=== PATIENT | male | born 1990 | race Caucasian/White ===

== ENCOUNTER → 2023-06-12 08:04 | Outpatient (CLI) | payer BC, SELFPAY ==
[2023-06-12 19:16] LABS: Add Manual Diff / Slide Review NO; Basophils Absolute Auto 100 /uL (0-100); Basophils Percent Auto 0.5 % (0-2); Eosinophils Absolute Auto 300 /uL (0-450); Eosinophils Percent Auto 3.2 % (2-4); Hematocrit 49.1 % (41-53); Hemoglobin 16.6 g/dL (13.5-17.5); Lymphocytes Absolute Auto 1900 /uL (1100-4500); Lymphocytes Percent Auto 19.8 % (25-40); Mean Corpuscular HGB Conc 33.8 % (30-36); Mean Corpuscular Hemoglobin 31.6 PG (26-34); Mean Corpuscular Volume 93.6 fL (80-100); Monocytes Absolute Auto 400 /uL (0-900); Monocytes Percent Auto 4.6 % (3-14); Neutrophils Absolute Auto 6900 /uL (1500-7000); Neutrophils Percent Auto 71.9 % (50-75); Platelet Count 307 X10^3/uL (150-400); Red Blood Cell Count 5.25 X10^6/uL (4.5-5.9); Red Cell Distribution Width 12.7 % (11.6-14.8); White Blood Cell Count 9.6 X10^3/uL (4.5-11.0)
[2023-06-12 19:21] LABS: HEMOLYSIS 19 (0-50); Iron 251 ug/dL (49-181)
[2023-06-12 19:32] LABS: Percent Iron Saturation 65 % (20-50); Total Iron Binding Capacity 388 ug/dL (261-462); Transferrin 364 mg/dL (206-381)
[2023-06-12 19:38] LABS: Alanine Aminotransferase 22 IU/L (<50); Albumin 4.5 g/dL (3.5-5.0); Albumin Globulin Ratio 1.7 (1.0-2.8); Alkaline Phosphatase 92 U/L (38-126); Aspartate Aminotransferase 33 IU/L (17-59); BUN Creatinine Ratio 11.9 (6-22); Bilirubin Total 0.9 mg/dL (0.2-1.3); Blood Urea Nitrogen 10 mg/dL (9-20); Calcium 10.5 mg/dL (8.4-10.2); Carbon Dioxide 27 mmol/L (22-32); Chloride 99 mmol/L (98-107); Cholesterol 153 mg/dL (140-199); Estimated Glomerular Filt Rate > 60 mL/min (>60); Globulin 2.7 g/dL (1.7-4.1); Glucose 133 mg/dL (70-100); HDL Cholesterol 88 mg/dL (40-60); HEMOLYSIS 17 (0-50); LDL Cholesterol Calculated 41 mg/dL (<100); Potassium 4.9 mmol/L (3.4-5.1); Sodium 137 mmol/L (137-145); Total Protein 7.2 g/dL (6.3-8.2); Triglycerides 122 mg/dL (35-150)
== END ==
PROVIDERS: PCP Family Medicine; Visit Provider Family Medicine
DX: Z13.6 Encounter for screening for cardiovascular disorders (principal); I10 Essential (primary) hypertension; R10.9 Unspecified abdominal pain; G89.29 Other chronic pain
CPT/HCPCS: 80053; 80061; 83540; 83550; 85025

== ENCOUNTER → 2023-09-10 15:01 | Outpatient (CLI) | payer OTHER, SELFPAY ==
--- NOTE | 2023-09-10 15:04 | DI.US.S_ITS ---
PROCEDURE: US ABDOMEN COMPLETE INDICATIONS: abd pain chronic RUQ since choley more than a decade ago TECHNIQUE: Real-time scanning was performed of the abdominal and retroperitoneal organs, with image documentation. COMPARISON: None. FINDINGS: Liver: Liver is normal in size and homogeneous in echotexture. There is a cluster of cysts within the right hepatic dome measuring 1.0 x 1.0 x 0.8 cm. Gallbladder: Surgically absent. Biliary ducts: Intrahepatic bile ducts are not well seen. Extrahepatic bile duct caliber measures 2.9 mm. Normal is 6-7 mm or less in diameter, or 10 mm or less post-cholecystectomy. Pancreas: Visualized portions of the pancreas are sonographically normal. Spleen: Spleen is normal in size and homogeneous in echotexture. Kidneys: Kidneys are normal in size and echotexture. Right kidney measures 9.4 cm long; left kidney measures 10.7 cm long. No hydronephrosis or nephrolithiasis. No solid masses. Aorta: Visualized aorta is normal in caliber at less than 3 cm. Iliacs: Proximal common iliac arteries are normal in caliber at less than 2.5 cm. IVC: Intrahepatic inferior vena cava is patent. Miscellaneous: No free abdominal fluid. IMPRESSION: 1. Gallbladder is surgically absent. 2. Small cluster of cysts within the right hepatic dome measuring 1 cm. 3. No biliary ductal dilatation. Dictated by: Randy Riojas M.D. on 09/11/2023 at 9:34 Approved by: Randy Riojas M.D. on 09/11/2023 at 9:36
== END ==
LOC: US 15:03
PROVIDERS: PCP Family Medicine; Referring Provider Family Medicine; Visit Provider Family Medicine
DX: K76.89 Other specified diseases of liver (principal); M79.89 Other specified soft tissue disorders; R10.9 Unspecified abdominal pain; G89.29 Other chronic pain; Z90.49 Acquired absence of other specified parts of digestive tract
CPT/HCPCS: 76700

== ENCOUNTER → 2023-09-20 11:08 | Outpatient (CLI) | payer OTHER, SELFPAY ==
[2023-09-20 19:02] LABS: HEMOLYSIS < 15 (0-50); Iron 114 ug/dL (49-181)
[2023-09-20 19:14] LABS: Vitamin D 25 Hydroxy (D3) 19.9 ng/mL (30.0-100.0)
[2023-09-20 19:16] LABS: Percent Iron Saturation 30 % (20-50); Total Iron Binding Capacity 386 ug/dL (261-462); Transferrin 337 mg/dL (206-381)
[2023-09-20 19:33] LABS: Ferritin 30 ng/mL (18-464)
[2023-09-23 12:53] LABS: Calcium 9.7 mg/dL (8.7-10.2); Parathyroid Hormone, Intact 39 pg/mL (15-65)
[2023-09-28 00:07] LABS: Deamidated Gliadin Ab IgA 5 units (0-19); Deamidated Gliadin Ab IgG 4 units (0-19); Immunoglobulin A,Qn 227 mg/dL (90-386); t-Transglutaminase IgA <2 U/mL (0-3)
[2023-10-02 12:25] LABS: DQ8 (DQA1 03XX, DQB1 0302) Negative (.)
== END ==
PROVIDERS: PCP Family Medicine; Visit Provider Family Medicine
DX: R10.9 Unspecified abdominal pain (principal); G89.29 Other chronic pain; M79.89 Other specified soft tissue disorders; F17.200 Nicotine dependence, unspecified, uncomplicated; R73.9 Hyperglycemia, unspecified; E83.52 Hypercalcemia; R79.89 Other specified abnormal findings of blood chemistry
CPT/HCPCS: 81377; 82306; 82310; 82728; 82784; 83036; 83516; 83540; 83550; 83970